=== PATIENT | female | born 1955 | race Caucasian/White ===

== ENCOUNTER 2016-09-10 15:39 | Emergency (ER) | payer OTHER ==
[2016-09-10 17:01] LABS: BASOPHIL 0.1 % (0-2); EOSINOPHIL 1.2 % (0-5); HCT 43.1 % (37.0-47.0); HGB 14.6 g/dl (12.5-16.0); LYMPHOCYTE 20.8 % (15-48); MCH 28.6 pg (25.0-31.0); MCHC 33.9 g/dL (32.0-36.0); MCV 84.5 fL (78.0-100.0); MONOCYTE 7.9 % (0-12); MPV 9.2 fL (6.0-9.5); PLT 313 K/uL (150-400); WBC 9.3 K/uL (4.0-10.5)
[2016-09-10 17:14] LABS: INR 0.97 (0.9-1.2); PROTHROMBIN TIME 12.5 SECONDS (11.7-14.0); PTT 24.8 SECONDS (23.2-31.4)
[2016-09-10 17:22] LABS: ALBUMIN 4.6 g/dL (3.4-4.8); BILIRUBIN - TOTAL 0.4 mg/dL (0.1-1.0); CREATININE 0.7 mg/dL (0.5-1.0); GLOBULIN (CALCULATION) 2.9 g/dL (2.2-4.2); POTASSIUM 3.6 mmol/L (3.5-5.1); TOTAL PROTEIN 7.5 g/dL (6.4-8.3)
== END 2016-09-10 21:40 | disposition other institution (70) ==
LOC: FER 15:39
PROVIDERS: Internal Medicine
DX: R07.89 Other chest pain (principal); R06.02 Shortness of breath; R10.816 Epigastric abdominal tenderness; I10 Essential (primary) hypertension; Z79.899 Other long term (current) drug therapy
CPT/HCPCS: 36415; 71020; 80053; 84484; 85025; 85610; 85730; 93005; 96372; C9113; J2270; J2405; J2765

== ENCOUNTER 2020-06-04 10:51 | Emergency (ER) | payer OTHER ==
[~2020-06-04 10:51] MED LIST: MELOXICAM15 MG PO; PANTOPRAZOLE SO40 MG PO; VALSARTAN80 MG PO
== END 2020-06-04 14:08 | disposition home or self-care (01) ==
LOC: FER 10:51
DX: U07.1 COVID-19 (principal); Z23 Encounter for immunization; I10 Essential (primary) hypertension; Z88.5 Allergy status to narcotic agent; Z79.899 Other long term (current) drug therapy
CPT/HCPCS: J7050; M0239